=== PATIENT | male | born 1965 | race Caucasian/White ===

== ENCOUNTER → 2018-01-08 | Outpatient (CLI) | payer OTHER ==
[~2018-01-08] MED LIST: IOPAMIDOL 370 MG/ML 200 ML INFUS..BTL INJ ONE; SODIUM CHLORIDE 0.9% 50ML 50 ML ONE
[2018-01-08 11:23] LABS: BLOOD UREA NITROGEN 13 mg/dL (7-26); BUN/CREATININE RATIO 15 (6-25); CREATININE, SERUM 0.84 mg/dL (0.72-1.25); EST GLOMERULAR FILTRATION RATE > 60 ML/MIN (60-)
--- NOTE | 2018-01-08 12:02 | Diagnostic Imaging Report ---
PROCEDURE: Frontal and lateral views of the chest. COMPARISON: CT dated 06/07/08 INDICATIONS: SPOT ON LIVER OR LUNG FINDINGS: Lines/tubes: None. Lungs: The lungs are well inflated and clear. There is no evidence of pneumonia or pulmonary edema. Pleura: There is no pleural effusion or pneumothorax. Heart and mediastinum: The heart and the mediastinum are unremarkable. Large hiatal hernia is again visualized posterior to the heart shadow. Bones: No acute bony abnormality. IMPRESSION: 1. No acute cardiopulmonary disease. Dictated by: Ned Live M.D. on 01/08/2018 at 12:06 Electronically approved by: Ned Live M.D. on 01/08/2018 at 12:06
--- NOTE | 2018-01-08 12:59 | Diagnostic Imaging Report ---
PROCEDURE: CT ABDOMEN WITH AND WITHOUT CONTRAST TECHNIQUE: The abdomen was scanned utilizing a multidetector helical scanner from the diaphragm to the iliac crest before and after the IV administration of 100 cc of Isovue 370 and the oral administration of water. Liver mass protocol was performed. Coronal and sagittal multiplanar reformations were obtained. COMPARISON: None. INDICATIONS: ABNORMAL LIVER IMAGING. POSSIBLE MASS FINDINGS: LOWER THORAX: Large sliding hiatal hernia partially visualized. Lung bases are unremarkable. HEPATOBILIARY: Ill-defined wedge-shaped focus of hyperattenuation seen on arterial and portal venous imaging likely represents a vascular shunt. No discrete hepatic mass lesion seen on pre-or postcontrast imaging. Gallbladder is unremarkable. SPLEEN: No splenomegaly. PANCREAS: No focal masses or ductal dilatation. ADRENALS: Fullness of the left adrenal without discrete nodule. No right adrenal nodule. KIDNEYS: No hydronephrosis. No calculi. No mass lesion. Delayed phase images show no filling defects within the visualized upper collecting systems or proximal ureters. PERITONEUM / RETROPERITONEUM: No free air or fluid. LYMPH NODES: No upper retroperitoneal or mesenteric lymphadenopathy. VESSELS: Atherosclerotic calcification of the abdominal aorta and major branch vessels without aneurysmal dilatation. The left hepatic artery is replaced to the left gastric artery. Portal vein, splenic vein, and central superior mesenteric vein are patent. GI TRACT: Visualized portions of the large bowel show no evidence of distention or wall thickening. Large sliding hiatal hernia partially visualized. No small bowel dilatation to suggest obstruction. Radiodense tablet within the small intestine may reflect antacid medication ingestion. BONES AND SOFT TISSUES: No osseous destructive lesions. No focal soft tissue abnormalities. IMPRESSION: No suspicious liver mass. Probable small arterioportal shunt in segment 5. Large sliding hiatal hernia. Atherosclerotic vascular disease. Dictated by: Osbaldo Pereira M.D. on 01/08/2018 at 13:03 Electronically approved by: Osbaldo Pereira M.D. on 01/08/2018 at 13:03
== END ==
LOC: CT 10:24
PROVIDERS: ATTEND Internal Medicine Gastroenterology
DX: R93.2 Abnormal findings on diagnostic imaging of liver and biliary tract (principal)
CPT/HCPCS: 36415; 71046; 74170; 82565; 84520; Q9967